=== PATIENT | female | born 1995 | race Caucasian/White ===

== ENCOUNTER 2025-05-08 18:55 | Emergency (ER) | payer OTHER, SELFPAY ==
[2025-05-08 18:57] VITALS: BP 159/105
[2025-05-08 20:08] VITALS: BP 113/64
[2025-05-08 21:00] VITALS: BP 115/71
[2025-05-08 22:00] VITALS: BP 109/58
[2025-05-08] MEDS: ATIVAN 1 MG PO (23:15)
[2025-05-08 23:38] VITALS: BP 124/82
[2025-05-08 23:41] LABS: Hematocrit 38.0 % (37.0-47.0); Hemoglobin 13.0 g/dL (12.0-16.0); Mean Corp Hgb Conc. 34.2 g/dL (33.0-37.0); Mean Corpuscular Volume 84.3 fL (81.0-99.0); Nucleated Red Blood Cells % 0 %; Platelet Count 303 10^3/uL (130-400); Red Cell Dist. Width 12.6 % (11.5-14.5)
--- NOTE | 2025-05-08 23:41 | ED.GENMED ---
History of Present Illness
General
Chief Complaint: Seizure
Time Seen by Provider: 05/08/25 21:47
Nursing documentation reviewed up to this point in time: agreed with
History of Present Illness
History of Present Illness:
29-year-old female presents to the ER for evaluation of headache which has been present intermittently over the last 30 days. Patient also has a history of epilepsy and has been having frequent auras but has not been having any seizure activity.
Patient has been compliant with taking her lamotrigine as prescribed-300 mg twice daily. She has been in contact with her neurologist and was given prescription to have lamotrigine level checked along with an outpatient MRI. She has had some
difficulty in obtaining these tests due to her inability to drive due to her epilepsy. Patient also admits to being under a significant amount of stress recently related to family matters and having to move home. She denies any fevers or chills.
No vomiting. She has been eating and drink without any difficulty. She does have 2 small children at home along with having a job. She states that she has not been sleeping well over the last month. She has occasionally been using ibuprofen for
her headache with minimal change in her symptoms. She admits to having severe anxiety and has been obsessively worrying about the nature of her headache. She has a prior history of cerebral palsy with mild difficulty with fine motor movements of
her right upper extremity, otherwise she denies any paresthesias or weakness to her extremities. No difficulty with speech or swallowing
Past History
Past History
ED Past Medical History: Seizures and Other (seizures as infant; cerebral injury at )
ED Past Surgical History: None
Social History
Tobacco: Former smoker
Alcohol: None
Drug: Marijuana
Personal: Single
Living: with family
Employment: Student
Family History
Family History: Unable to obtain
Review of Systems
Review of Systems
Allergies reviewed?: Yes
Phy Exam
Physical Exam
Physical Exam:
Patient is awake, alert, appears in no acute distress, head is normocephalic atraumatic, PERRL, EOMI, no photophobia, heart regular rate and rhythm without murmurs or ectopy, lungs are clear to auscultation without wheezes rales or rhonchi, GCS is
15, mild difficulty with rapid alternating movement to her right hand but otherwise intact neuroexam, no dysdiadochokinesia, no ataxia, no pronator drift, 2+ DP pulses present symmetric bilateral feet with brisk cap refill to the toes, no peripheral
edema, no rash
Course
Orders/Labs/Results
Orders:
Orders
05/08/25 22:36
CT Head W/o Iv Contrast Urgent
Comment:
Reason For Exam: headaches
Lorazepam [Ativan] 1 mg PO NOW STA
05/08/25 23:31
Complete Blood Count/With Diff Urgent
Comprehensive Metabolic Panel Urgent
Lamotrigine (Lamictal) [S] Routine
Comment: please also send result to Dr Sarina Mace
Abnormal Lab Results
05/08/25
23:31
Chloride 110 H mmol/L
(98-107)
BUN 4 L mg/dl
(7-17)
Creatinine 0.5 L mg/dL
(0.6-1.0)
05/08/25 23:31
05/08/25 23:31
Labs are very reassuring, normal white blood count, kidney function preserved. Lamictal level pending
Vital Signs
Initial and Last Documented VS:
Initial Vital Signs
Temp Pulse Resp BP Pulse Ox
98.2 F 91 16 159/105 99
05/08/25 18:57 05/08/25 18:57 05/08/25 18:57 05/08/25 18:57 05/08/25 18:57
Last Documented Vital Signs
Temp Pulse Resp BP Pulse Ox
98.2 F 70 18 115/67 97
05/08/25 18:57 05/09/25 00:37 05/09/25 00:37 05/09/25 00:37 05/09/25 00:37
MDM/Problems Addressed
Differential Diagnosis Includes:
Differential diagnosis to consider but not limited to intracranial mass, hemorrhage, complex migraines, electrolyte dyscrasia, subtherapeutic antiepileptic, insomnia along with other etiologies considered
*Radiology
Radiology exam reviewed: radiology read reviewed (IMPRESSION: No acute intracranial abnormality noted. Stable chronic findings. No acute intracranial hemorrhage. No mass effect.)
*Pulse Oximetry
SaO2: 97
Oxygen Mode of Delivery: Room air
Patient hypoxic: no
*Critical Care Note
Total Time (30-74mins, 75-104mins- exclusive of procedures): Not Applicable
Update Note
Update Note:
Patient was given Ativan as she was feeling severely anxious. She reports significant improvement in her symptoms at time of reevaluation. I discussed with patient very reassuring workup in the ER including no acute findings on CT head. I advised
patient that she would benefit from pursuing having MRI as previously prescribed given her prior medical history. I also discussed with her pending lamotrigine level, labs are very reassuring here today. Patient feels comfortable with plan for
discharge and had no questions prior to leaving the department. She also expressed to me some financial difficulty as she was unable to afford [employer]. I encouraged her to reach out to her md pediatric allergist to see if she would qualify for additional
benefits and support.
ED Attending Note
-
Portions of this chart may have been created with voice recognition software.� Occasional wrong word or��sound alike� substitutions may have occurred due to the inherent limitations of voice recognition software.
Discharge Plan
Departure
Patient Disposition: Home (Routine Discharge)
Date of Disposition: 05/09/25
Time of Disposition: 00:06
Patient with high blood pressure during this ER visit?: Yes
Discharge Problem:
Headache
Prescriptions:
No Action
folic acid 1 MG tablet
1 mg PO DAILY
lorazepam 1 MG tablet
1 mg PO PRN PRN (Reason: seizure)
lamotrigine 100 MG tablet
500 mg PO BID
oxycodone-acetaminophen 5 MG/325 MG tablet
1 tab PO Q4HPRN PRN (Reason: moderate pain) Qty: 10 0RF
ibuprofen 600 MG tablet
600 mg PO Q4HPRN PRN (Reason: cramps) 0RF
Referrals:
[facility] [Active, Psychiatry]
NONE,* [Family Provider, Internal Medicine]
Activity Restrictions/Additional Instructions:
Try to get regular sleep. Continue your current medications. Please follow up with your neurologist as scheduled
Interventions
Interventions:
*Risk Screen - Suicide Last Done: 05/08/25 20:45
*General Assessment Last Done: 05/08/25 20:45
*Neglect/Abuse Screening Last Done: 05/08/25 20:45
*ED- Fall Risk Assessment Last Done: 05/08/25 20:45
*ED COVID-19 Vaccine History Last Done: 05/09/25 00:10
*Nursing Disposition Last Done: 05/09/25 00:37
ED- Cardiac Assessment Last Done: 05/08/25 20:45
ED- Neurological Assessment Last Done: 05/08/25 20:45
ED- Pulmonary Assessment Last Done: 05/08/25 20:45
Discharge Date and Time
Discharge Date/Time: 05/09/25 00:42
Print Language: MONTSERRATIAN
[2025-05-08 23:59] LABS: ALT (SGPT) 13 U/L (0-35); AST (SGOT) 18 U/L (14-36); Albumin 4.1 g/dl (3.5-5.0); Alkaline Phosphatase 77 U/L (38-126); Blood Urea Nitrogen 4 mg/dl (7-17); Calcium 9.1 mg/dl (8.4-10.2); Carbon Dioxide 23 mmol/L (22-30); Chloride 110 mmol/L (98-107); Glucose 95 mg/dl (70-99); Potassium 3.9 mmol/L (3.5-5.1); Sodium 137 mmol/L (135-145); Total Protein 6.6 g/dl (6.3-8.2); eGFR > 60.00
[2025-05-09] VITALS: BP 115/67
[2025-05-09 00:37] VITALS: BP 115/67
== END 2025-05-09 00:42 | disposition home or self-care (01) ==
LOC: EMR 18:55
PROVIDERS: EMERGENCY PHYSICIAN Emergency Medicine
DX: R51.9 Headache, unspecified (principal); G40.909 Epilepsy, unspecified, not intractable, without status epilepticus; F41.9 Anxiety disorder, unspecified; G80.9 Cerebral palsy, unspecified; Z87.891 Personal history of nicotine dependence
CPT/HCPCS: 99284; 70450; 80053; 80175; 85025